=== PATIENT | female | born 1955 | race Caucasian/White ===

== ENCOUNTER 2017-12-25 13:26 | Emergency (ER) | payer BC ==
[2017-12-25 13:49] VITALS: BP 113/74
--- NOTE | 2017-12-25 14:37 | UC ---
Back Pain HPI - HPI Summary HPI Summary: 62-year-old woman coming in with a chief complaint of low back pain. The pain started 5 days ago. It radiates down the left buttock into the left leg. There is no weakness or numbness no difficulty controlling urine or bowels. She 's been taking ibuprofen without relief. She did some extra housework 5 days ago. There was no obvious trauma. - History of Current Complaint Chief Complaint: UCBackPain Stated Complaint: BACK PAIN Time Seen by Provider: 12/25/17 14:12 Hx Last Menstrual Period: n/a - menopause Pain Intensity: 3 - Allergies/Home Medications Allergies/Adverse Reactions: Allergies Allergy/AdvReac Type Severity Reaction Status Date / Time No Known Allergies Allergy Verified 12/25/17 13:42 Home Medications: Home Medications Cranberry 4,000 mg PO BID 12/25/17 [History Confirmed 12/25/17] PMH/Surg Hx/FS Hx/Imm Hx Other Endocrine History: NO DM Other Cardiovascular History: NO HTN - Surgical History Surgical History: Yes Surgery Procedure, Year, and Place: 2 - Family History Known Family History: Positive: Cardiac Disease Family History: FHX LACERATIONS - Social History Alcohol Use: Occasionally Substance Use Type: None Smoking Status (MU): Never Smoked Tobacco Review of Systems Constitutional: Negative Skin: Negative Eyes: Negative ENT: Negative Respiratory: Negative Cardiovascular: Negative Gastrointestinal: Negative Genitourinary: Negative Motor: Negative Neurovascular: Negative Musculoskeletal: Other: - SEE HPI Neurological: Negative Psychological: Negative Is Patient Immunocompromised?: No All Other Systems Reviewed And Are Negative: Yes Physical Exam Triage Information Reviewed: Yes Appearance: Pain Distress - MILD Vital Signs: Initial Vital Signs Temp 98.3 F 12/25/17 13:45 Pulse 81 12/25/17 13:45 Resp 16 12/25/17 13:45 BP 113/74 12/25/17 13:45 Pulse Ox 98 12/25/17 13:45 Vital Signs Reviewed: Yes Neck: Positive: Supple Respiratory: Positive: No respiratory distress Cardiovascular: Positive: RRR Abdomen Description: Positive: Nontender Musculoskeletal: Positive: Other: - Tender to palpation to the left of the lower lumbar spine. There is tenderness to palpation through the buttock on the left in the sciatic distribution. Both legs have full strength and no sensation deficit. Patellar reflexes 2+ bilaterally. Neurological Exam: Normal Neurological: Positive: Muscle Tone Normal Psychological Exam: Normal Skin Exam: Normal Back Pain Course/Dx - Course Course Of Treatment: No neurologic deficit. The plan is to continue ibuprofen 600 mg every 6 hours, Lidoderm patch has been prescribed, Flexeril 10 mg every 8 hours when necessary and gentle stretching and cool compresses. Follow-up with primary care doctor recheck sooner if any worsening. - Differential Dx/Diagnosis Provider Diagnoses: LEFT SCIATICA. LOW BACK PAIN Discharge - Sign-Out/Discharge Documenting (check all that apply): Patient Departure All imaging exams completed and their final reports reviewed: No Studies - Discharge Plan Condition: Stable Disposition: HOME Prescriptions: Cyclobenzaprine TAB* [Flexeril 10 MG TAB*] 10 mg PO TID PRN #15 tab MDD 3 PRN Reason: Pain Lidocaine PATCH 5%* [Lidoderm 5% Patch*] 1 patch TRANSDERM DAILY #15 patch Patient Education Materials: Sciatica (ED), Acute Low Back Pain (ED), Lower Back Exercises (ED) Referrals: Gigi Garner MD [Primary Care Provider] - Additional Instructions: FOLLOW UP WITH YOUR DOCTOR. TAKE IBUPROFEN 600MG EVERY 6 HOURS NEEDED. GET RECHECKED FOR ANY WORSENING OF YOUR CONDITION OR QUESTIONS OR CONCERNS. - Billing Disposition and Condition Condition: STABLE Disposition: Home
== END 2017-12-25 14:37 | disposition home or self-care (01) ==
LOC: UCCORT 13:26
DX: M54.42 Lumbago with sciatica, left side (principal)
CPT/HCPCS: 99212; G0463